=== PATIENT | female | born 1985 | race Caucasian/White ===

== ENCOUNTER 2020-12-18 10:31 | Emergency (ER) | payer OTHER ==
[2020-12-18] MEDS ORDERED: Ondansetron 4 MG/2 ML SDV IVPUSH ONE (10:33)
[2020-12-18] MEDS ORDERED: Pantoprazole 40 MG Vial IVPUSH ONE (10:33)
[2020-12-18] MEDS ORDERED: Lactated Ringers 1,000 ML IV ONE (10:33)
[2020-12-18] MEDS ORDERED: Famotidine 20 MG/2 ML SDV IVPUSH ONE (10:33)
--- NOTE | 2020-12-18 10:33 | EDM.PDOC ---
ED HPI GENERAL MEDICAL PROBLEM - General Chief Complaint: Genitourinary Problem Stated Complaint: right flank pain Time Seen by Provider: 12/18/20 10:33 Source of Information: Reports: Patient, Old Records ([facility] chart/EMR) History Limitations: Reports: No Limitations - History of Present Illness INITIAL COMMENTS - FREE TEXT/NARRATIVE: The patient drove herself to the emergency room via private automobile for evaluation of constant 10/10 right CVA ache type discomfort with additional intermittent sharp right lower back pain with no history of radiation of the above symptoms. Her symptoms started at about 7:30 AM on 12/15 with patient seeing her regular provider, Krista Watts PA-C, at [facility] in [place], on 12/18/2019 and started on Cipro at that time for suspected UTI. Her provider was also suspicious of a possible kidney stone, although no true colic type symptoms to this point. Patient did have an IUD placed on 12/09/2020 without complications by her history. She denies any gross hematuria, although apparent microhematuria from urine specimen collected by her regular provider yesterday as above. No recent history of other abdominal pain, heartburn, nausea, diarrhea, melena, gross hematochezia, or any food intolerance, including fatty foods, etc. with normal bowel movement earlier this morning. Note that her above symptoms do worsen with activity with no history of fall, injury, etc. with symptoms occurring while she was getting up from a sitting position at work. She does have a long history of chronic low back pain. The patient also denies any recent fever, cough, wheezing, dyspnea, etc.. The patient denies any chest pain/pressure, heart flutter, dizziness, orthostasis, orthopnea, diaphoresis, paresthesias, recent decreased exercise tolerance, or any other anginal-type symptoms. The patient did take 600 mg of ibuprofen at 10 PM yesterday evening with 1500 mg of Tylenol taken at 4 PM yesterday afternoon. Her discomfort is 3/10 at this time. Onset: Sudden Onset Date: 12/15/20 Onset Time: 07:30 Quality: Reports: Ache, Same as Previous Episode, Sharp Severity: Moderate Improves with: Reports: Rest Worsens with: Reports: Movement Context: Reports: Other (As above). Denies: Sick Contact, Trauma Associated Symptoms: Reports: Fever/Chills (Possible chills but temperature not measured). 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, Cold Therapy, Heat Therapy, NSAIDS Right Lower Back Pain Score (Numeric/FACES): 3 - Related Data Allergies Allergy/AdvReac Type Severity Reaction Status Date / Time No Known Allergies Allergy Verified 12/15/14 12:46 Home Meds: Home Meds Acetaminophen 2 tab PO Q4HR PRN 12/18/20 [History] Cetirizine [ZyrTEC] 1 tab PO DAILY 12/18/20 [History] Ciprofloxacin [Ciprofloxacin HCl] 1 tab PO BID 12/18/20 [History] Cyclobenzaprine [Flexeril] 10 mg PO TID PRN #30 tab 12/18/20 [Rx] Ibuprofen 2 - 3 cap PO Q6HR PRN 12/18/20 [History] Pseudoephedrine [Sudogest] 1 tab PO DAILY 12/18/20 [History] Past Medical History HEENT History: Reports: Allergic Rhinitis, Impaired Vision, Other (See Below). Denies: Cataract, Glaucoma, Hard of Hearing, Macular Degeneration, Otitis Media, Retinal Detachment Other HEENT History: Seasonal allergies. Patient does wear glasses. Cardiovascular History: Reports: Arrhythmia, Other (See Below). Denies: Afib, Aneurysm, Blood Clots/VTE/DVT, CAD, Heart Murmur, High Cholesterol, Hypertension, [place], PVD, Syncope Other Cardiovascular History: PSVT on 02/24/2013 with no recurrence since that time and with no current medical therapy. Respiratory History: Denies: Asthma, Bronchitis, Recurrent ( problems with recurrent), COPD ( collapsed lung), Intubation, Difficult, Intubation, Previous, PE, Pneumonia, Recurrent ( pneumonia bronchitis), Pneumothorax (Previous surgeries forgetting to put in your lung to help you breathe during the surgery), Sleep Apnea, TB ( sleep apnea will need oxygen at night) Gastrointestinal History: Reports: GERD. Denies: Celiac Disease, Cholelithiasis, Chronic Constipation, Chronic Diarrhea, Gastritis, GI Bleed, Hepatitis, Hiatal Hernia, Inflammatory Bowel Disease, Irritable Bowel Syndrome, Jaundice, Pancreatitis, PUD Genitourinary History: Reports: None. Denies: Acute Renal Failure, Chronic Renal Insuffiency, Renal Calculus, STD, Urinary Incontinence, UTI, Recurrent ENGRAVER BLOCK History: Reports: Dysfunctional Uterine Bleeding, . Denies: Endometriosis, Fibroids, Polycystic Ovaries, Spontaneous : 2 LMP (Approximate): Other (See Below) Other ENGRAVER BLOCK History: LMP about 1 week ago with IUD placed on 12/09/2020 as below. Full term without complications during pregnancies or deliveries Musculoskeletal History: Reports: Arthritis, Back Pain, Chronic, Osteoarthritis, Other (See Below). Denies: Amputation, Fracture, Gout, Neck Pain, Chronic, RA, SLE Other Musculoskeletal History: Mild scoliosis. Neurological History: Reports: Headaches, Chronic, Migraines, Other (See Below). Denies: Cerebral Aneurysms, Concussion, CVA, Head Trauma, MS, Neuropathy, Peripheral, Parkinson's, Seizure, TIA, Vertigo Other Neuro History: Migraine headaches with normal CT of the brain in January 2012 as below. Psychiatric History: Reports: None. Denies: Abuse, Victim of, ADD, ADHD, Addic tion, Anxiety, Depression, Psych Hospitalization(s), PTSD, Suicide Attempt, Suicidal Ideation Endocrine/Metabolic History: Reports: Obesity/BMI 30+. Denies: Diabetes, Gestational, Diabetes, Type I, Diabetes, Type II, Diabetes Mellitus, Type 3c, Hypothyroidism, IDDM Hematologic History: Reports: None. Denies: Anemia, Blood Transfusion(s), Iron Deficiency Immunologic History: Denies: AIDS, HIV, SLE Oncologic (Cancer) History: Reports: Cervix, Other (See Below). Denies: Basal Cell Carcinoma, Colon, Hodgkin's Lymphoma, Leukemia, Lymphoma, Malignant Melanoma, Metastatic, Non-Hodgkin's Lymphoma, Ovarian, Squamous Cell Carcinoma, Uterine Other Oncologic History: Stage I cervical cancer treated with a LEEP as below. Dermatologic History: Reports: None. Denies: Eczema, Psoriasis - Infectious Disease History Infectious Disease History: Reports: Chicken Pox. Denies: C-Difficile, HIV- Human Immunodeficiency Virus, Meningitis, Mononucleosis, MRSA, Mumps, Novel Coronavirus, Pertussis (Whooping Cough), Rheumatic Fever, Rubella, Scarlet Fever, Shingles, TB, VRE - Past Surgical History Head Surgeries/Procedures: Reports: None HEENT Surgical History: Reports: Oral Surgery, Other (See Below). Denies: Adenoidectomy, Cataract Surgery, Eye Surgery, Laser Surgery, LASIK, Myringotomy w Tube(s), Naso-Sinus Surgery, Tonsillectomy Other HEENT Surgeries/Procedures: Dental extractions. Cardiovascular Surgical History: Reports: None. Denies: Varicose Respiratory Surgical History: Reports: None. Denies: Thoracentesis GI Surgical History: Reports: None. Denies: Appendectomy, Cholecystectomy, Colonoscopy, EGD, Hernia, Abdominal, Hernia, Inguinal, Hernia Repair/Other Female Surgical History: Reports: LEEP, Other (See Below). Denies: Breast Biopsy, Breast Reduction, Section, Cervical Conization, Cervical Cryotherapy, D&C, Dilitation & Evacuation, Hysterectomy, Salpingo-Oophorectomy, Tubal Ligation Other Female Surgeries/Procedures: LEEP procedure in 2013. Endocrine Surgical History: Reports: None. Denies: Thyroid Biopsy Neurological Surgical History: Reports: None. Denies: C-Spine, Discectomy, Laminectomy, Lumbar Spine, Sacral Spine, Spinal Fusion, Thoracic Spine, Vertebroplasty Musculoskeletal Surgical History: Reports: None. Denies: Arthroscopic Procedure, Carpal Tunnel, Joint Replacement, Knee Replacement, ORIF, Shoulder Surgery Oncologic Surgical History: Reports: None Dermatological Surgical History: Reports: None - Past Imaging History Past Imaging History: Reports: CAT Scan (CT scan of the brain on 01/21/2012.), Ultrasound (Pelvic ultrasound on 12/21/2012. Previous OB ultrasounds.) Social & Family History - Tobacco Use Tobacco Use Status *Q: Never Tobacco User Tobacco Use Within Last Twelve Months: No Used Tobacco, but Quit: No Smoking Cessation Information Provided To Patient: No Second Hand Smoke Exposure: No Second Hand Smoke Education Provided: No - Caffeine Use Caffeine Use: Reports: Soda (46 sodas per day). Denies: Coffee, Energy Drinks, Tea - Alcohol Use Alcohol Use History: No Days Per Week of Alcohol Use: 0 Number of Drinks Per Day: 0 Number of Drinks Per Day Comment: No previous DWIs, problems with alcohol abuse, etc. Total Drinks Per Week: 0 Alcohol Use in Last Twelve Months: No - Recreational Drug Use Recreational Drug Use: Yes Drug Use in Last 12 Months: Yes Recreational Drug Type: Reports: Marijuana/Hashish (Started at age 18 currently with weekly use). 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 ED EXAM, GENERAL - Physical Exam Exam: See Below Exam Limited By: No Limitations General Appearance: Alert, WD/WN, No Apparent Distress, Anxious (Mild to moderate) Head: Atraumatic, Normocephalic. No: Facial Swelling, Facial Tenderness, Sinus Tenderness Neck: Normal Inspection, Supple, Non-Tender, Full Range of Motion. No: Carotid Bruit, Lymphadenopathy (L), Lymphadenopathy (R), Thyromegaly Respiratory/Chest: No Respiratory Distress, Lungs Clear, Normal Breath Sounds, No Accessory Muscle Use, Chest Non-Tender. No: Pleural Rub (Yesterday for an open apparently apparently they allow it rapid goes to the emergency room with with or without now she is worried about stone protocol so there would not be will order with in order tohave been ordered renal stone), Retractions Cardiovascular: Normal Peripheral Pulses, Regular Rate, Rhythm, No Edema, No Gallop, No JVD, No Murmur, No Rub. No: Gallop/S3, Gallop/S4, Friction Rub Peripheral Pulses: 2+: Radial (L), Radial (R), Dorsalis Pedis (L), Dorsalis Pedis (R) GI/Abdominal: Normal Bowel Sounds, Soft, Non-Tender, No Organomegaly, No Distention, No Abnormal Bruit, No Mass, Pelvis Stable, Other (Obese). No: Guarding (Female) Exam: Deferred Rectal (Female) Exam: Deferred Back Exam: Decreased Range of Motion (Right low back region), Paraspinal Tenderness (Minimal right mid lumbar region). No: CVA Tenderness (L), CVA Tenderness (R), Muscle Spasm, Vertebral Tenderness Extremities: Normal Inspection, Normal Range of Motion, Non-Tender, No Pedal Edema, Normal Capillary Refill. No: Nadine's Sign Neurological: Alert, Oriented, CN II-XII Intact, Normal Cognition, Normal Gait, Normal Reflexes (Negative Babinski's), No Motor/Sensory Deficits Psychiatric: Anxious (Mild to moderate), Depressed Mood (Borderline) Skin Exam: Warm, Dry, Intact, Normal Color, No Rash, Tattoo(s). No: Diaphoretic, Wound/Incision Lymphatic: No Adenopathy Course - Vital Signs Last Recorded V/S: Last Vital Signs Temp 36.4 C 12/18/20 12:30 Pulse 64 12/18/20 12:30 Resp 16 12/18/20 12:30 BP 139/73 12/18/20 12:30 Pulse Ox 100 12/18/20 12:30 Vital Signs - 24 hr 12/18/20 12/18/20 11:00 12:30 Temperature [ 36.3 C 36.4 C Temporal] Pulse, 65 64 Peripheral [ Pulse Oximetry] Respiratory 15 16 Rate Blood Pressure 120/68 139/73 [Right Upper Arm] O2 Sat by Pulse 100 100 Oximetry - Orders/Labs/Meds Orders: Active Orders 24 hr Category Date Time Status Peripheral IV Care [RC] . DIRECTED Care 12/18/20 10:34 Active Nothing Per Oral Diet [DIET] Diet 12/18/20 Breakfast Active Abdomen Pelvis w Cont [CT] Stat Exams 12/18/20 10:33 Stop Req Abdomen Pelvis wo Cont [CT] Stat Exams 12/18/20 10:37 Ordered CULTURE URINE [RM] Stat Lab 12/18/20 10:35 Received Sodium Chloride 0.9% [Saline Flush] Med 12/18/20 10:33 Active 10 ml FLUSH ASDIRECTED PRN Obtain Past Medical Record [OM.PC] Urgent Oth 12/18/20 10:33 Active Peripheral IV Insertion Adult [OM.PC] Stat Oth 12/18/20 10:33 Ordered Resuscitation Status Stat Resus Stat 12/18/20 10:33 Ordered Medication Orders Sodium Chloride (Sodium Chloride 0.9% 10 Ml Syringe) 10 ml FLUSH ASDIRECTED PRN PRN Reason: Keep Vein Open Last Admin: 12/18/20 10:46 Dose: 10 ml Documented by: Admin: 12/18/20 10:45 Dose: 10 ml Documented by: ELIAZAR Labs: Laboratory Tests 12/18/20 12/18/20 12/18/20 Range/Units 10:35 10:40 10:40 WBC 8.7 (4.0-10.2) K/uL RBC 4.43 (3.77-5.09) M/uL Hgb 13.5 (11.7-15.5) g/dL Hct 40.5 (34.0-46.0) % MCV 91.4 (84.0-98.0) fL MCH 30.5 (28.2-33.3) pg MCHC 33.3 (31.7-36.0) g/dL RDW 12.5 (11.2-14.1) % Plt Count 287 (150-350) K/uL Neut % (Auto) 66.0 (45.0-80.0) % Lymph % (Auto) 24.6 (10.0-50.0) % [place] % (Auto) 5.9 (2.0-14.0) % Eos % (Auto) 3.2 (0.0-5.0) % Baso % (Auto) 0.3 (0.0-2.0) % Neut # (Auto) 5.74 (1.40-7.00) K/uL Lymph # (Auto) 2.14 (0.50-3.50) K/uL [place] # (Auto) 0.51 (0.00-1.00) K/uL Eos # (Auto) 0.28 (0.00-0.50) K/uL Baso # (Auto) 0.03 (0.00-0.20) K/uL PT (9.5-12.0) SEC INR APTT (24.5-32.8) SEC Sodium (136-145) mmol/L Potassium (3.5-5.1) mmol/L Chloride (98-107) mmol/L Carbon Dioxide (21.0-32.0) mmol/L BUN (7-18) mg/dL Creatinine (0.51-1.17) mg/dL Est Cr Clr Drug Dosing Estimated GFR (MDRD) mL/min Glucose (70-99) mg/dL Lactic Acid (0.4-2.0) mmol/L Uric Acid (2.6-7.2) mg/dL Calcium (8.5-10.1) mg/dL Magnesium (1.8-2.4) mg/dL Total Bilirubin (0.2-1.0) mg/dL AST (15-37) U/L ALT (12-78) U/L Alkaline Phosphatase (46-116) IU/L Total Protein (6.4-8.2) g/dL Albumin (3.4-5.0) g/dL Amylase 41 (25-115) U/L Lipase (73-393) U/L HCG, Qual (NEGATIVE) Specimen Type Urinvoid Urine Color Yellow Urine Appearance Clear Urine pH 5.5 (5.0-9.0) Ur Specific [place] >= 1.030 (1.005-1.030) Urine Protein Negative (NEGATIVE) mg/dL Urine Glucose (UA) Negative (NEGATIVE) mg/dL Urine Ketones Negative (NEGATIVE) mg/dL Urine Occult Blood Moderate H (NEGATIVE) Urine Nitrite Negative (NEGATIVE) Urine Bilirubin Negative (NEGATIVE) Urine Urobilinogen 0.2 (0.2-1.0) E.U./dL Ur Leukocyte Esterase Negative (NEGATIVE) Urine RBC 5-10 H /HPF Urine WBC 5-10 H /HPF Ur Epithelial Cells Moderate H /LPF Urine Bacteria Few (NONE TO FEW) /HPF 12/18/20 12/18/20 12/18/20 Range/Units 10:40 10:40 10:40 WBC (4.0-10.2) K/uL RBC (3.77-5.09) M/uL Hgb (11.7-15.5) g/dL Hct (34.0-46.0) % MCV (84.0-98.0) fL MCH (28.2-33.3) pg MCHC (31.7-36.0) g/dL RDW (11.2-14.1) % Plt Count (150-350) K/uL Neut % (Auto) (45.0-80.0) % Lymph % (Auto) (10.0-50.0) % [place] % (Auto) (2.0-14.0) % Eos % (Auto) (0.0-5.0) % Baso % (Auto) (0.0-2.0) % Neut # (Auto) (1.40-7.00) K/uL Lymph # (Auto) (0.50-3.50) K/uL [place] # (Auto) (0.00-1.00) K/uL Eos # (Auto) (0.00-0.50) K/uL Baso # (Auto) (0.00-0.20) K/uL PT 9.6 (9.5-12.0) SEC INR 1.0 APTT 24.4 L (24.5-32.8) SEC Sodium 138 (136-145) mmol/L Potassium 3.9 (3.5-5.1) mmol/L Chloride 103 (98-107) mmol/L Carbon Dioxide 25.7 (21.0-32.0) mmol/L BUN 10 (7-18) mg/dL Creatinine 0.77 (0.51-1.17) mg/dL Est Cr Clr Drug Dosing TNP Estimated GFR (MDRD) > 60 mL/min Glucose 96 (70-99) mg/dL Lactic Acid 1.1 (0.4-2.0) mmol/L Uric Acid 4.0 (2.6-7.2) mg/dL Calcium 8.6 (8.5-10.1) mg/dL Magnesium 2.0 (1.8-2.4) mg/dL Total Bilirubin 0.6 (0.2-1.0) mg/dL AST 11 L (15-37) U/L ALT 23 (12-78) U/L Alkaline Phosphatase 63 (46-116) IU/L Total Protein 7.4 (6.4-8.2) g/dL Albumin 4.0 (3.4-5.0) g/dL Amylase (25-115) U/L Lipase 100 (73-393) U/L HCG, Qual (NEGATIVE) Specimen Type Urine Color Urine Appearance Urine pH (5.0-9.0) Ur Specific [place] (1.005-1.030) Urine Protein (NEGATIVE) mg/dL Urine Glucose (UA) (NEGATIVE) mg/dL Urine Ketones (NEGATIVE) mg/dL Urine Occult Blood (NEGATIVE) Urine Nitrite (NEGATIVE) Urine Bilirubin (NEGATIVE) Urine Urobilinogen (0.2-1.0) E.U./dL Ur Leukocyte Esterase (NEGATIVE) Urine RBC /HPF Urine WBC /HPF Ur Epithelial Cells /LPF Urine Bacteria (NONE TO FEW) /HPF 12/18/20 Range/Units 10:40 WBC (4.0-10.2) K/uL RBC (3.77-5.09) M/uL Hgb (11.7-15.5) g/dL Hct (34.0-46.0) % MCV (84.0-98.0) fL MCH (28.2-33.3) pg MCHC (31.7-36.0) g/dL RDW (11.2-14.1) % Plt Count (150-350) K/uL Neut % (Auto) (45.0-80.0) % Lymph % (Auto) (10.0-50.0) % [place] % (Auto) (2.0-14.0) % Eos % (Auto) (0.0-5.0) % Baso % (Auto) (0.0-2.0) % Neut # (Auto) (1.40-7.00) K/uL Lymph # (Auto) (0.50-3.50) K/uL [place] # (Auto) (0.00-1.00) K/uL Eos # (Auto) (0.00-0.50) K/uL Baso # (Auto) (0.00-0.20) K/uL PT (9.5-12.0) SEC INR APTT (24.5-32.8) SEC Sodium (136-145) mmol/L Potassium (3.5-5.1) mmol/L Chloride (98-107) mmol/L Carbon Dioxide (21.0-32.0) mmol/L BUN (7-18) mg/dL Creatinine (0.51-1.17) mg/dL Est Cr Clr Drug Dosing Estimated GFR (MDRD) mL/min Glucose (70-99) mg/dL Lactic Acid (0.4-2.0) mmol/L Uric Acid (2.6-7.2) mg/dL Calcium (8.5-10.1) mg/dL Magnesium (1.8-2.4) mg/dL Total Bilirubin (0.2-1.0) mg/dL AST (15-37) U/L ALT (12-78) U/L Alkaline Phosphatase (46-116) IU/L Total Protein (6.4-8.2) g/dL Albumin (3.4-5.0) g/dL Amylase (25-115) U/L Lipase (73-393) U/L HCG, Qual Negative (NEGATIVE) Specimen Type Urine Color Urine Appearance Urine pH (5.0-9.0) Ur Specific [place] (1.005-1.030) Urine Protein (NEGATIVE) mg/dL Urine Glucose (UA) (NEGATIVE) mg/dL Urine Ketones (NEGATIVE) mg/dL Urine Occult Blood (NEGATIVE) Urine Nitrite (NEGATIVE) Urine Bilirubin (NEGATIVE) Urine Urobilinogen (0.2-1.0) E.U./dL Ur Leukocyte Esterase (NEGATIVE) Urine RBC /HPF Urine WBC /HPF Ur Epithelial Cells /LPF Urine Bacteria (NONE TO FEW) /HPF Meds: Medications Generic Name Dose Route Start Last Admin Trade Name Freq PRN Reason Stop Dose Admin Sodium Chloride 10 ml 12/18/20 10:33 12/18/20 10:46 Sodium Chloride 0.9% 10 Ml Syringe FLUSH 10 ml ASDIRECTED PRN Administration Keep Vein Open Discontinued Medications Generic Name Dose Route Start Last Admin Trade Name Freq PRN Reason Stop Dose Admin Famotidine 40 mg 12/18/20 10:33 12/18/20 10:44 Famotidine 20 Mg/2 Ml Sdv IVPUSH 12/18/20 10:34 40 mg ONETIME ONE Administration Lactated Ringer's 1,000 mls @ 999 mls/hr 12/18/20 10:33 12/18/20 10:44 Ringers, Lactated IV 12/18/20 11:33 999 mls/hr .BOLUS ONE Administration Ketorolac Tromethamine 30 mg 12/18/20 10:39 12/18/20 10:44 Ketorolac 30 Mg/Ml Sdv IVPUSH 12/18/20 10:40 30 mg ONETIME ONE Administration Pantoprazole Sodium 40 mg 12/18/20 10:33 12/18/20 10:44 Pantoprazole 40 Mg Vial IVPUSH 12/18/20 10:34 40 mg ONETIME ONE Administration - Radiology Interpretation Free Text/Narrative:: CT of the abdomen and pelvis using stone protocol was negative for urolithiasis, nephrolithiasis, hydronephrosis, etc. Incidental finding of possible left ovarian follicle and/or enlargement by verbal report, however not noted in the written report. IUD and hepatomegaly without fatty liver were additional incidental findings. No significant abnormalities noted in the lumbar spine, including disc prolapse, etc. CT Results Date: 12/18/20 CT Results Time: 12:03 Departure - Departure Time of Disposition: 12:37 Disposition: Home, Self-Care 01 Condition: Good Clinical Impression: UTI, Urinary tract infectious disease, Hepatomegaly, Obesity (BMI 30-39.9) Osteoarthritis Qualifiers: Osteoarthritis location: multiple joints Osteoarthritis type: primary Qualified Code(s): M89.49 - Other hypertrophic osteoarthropathy, multiple sites Abdominal pain Qualifiers: Abdominal location: right upper quadrant Qualified Code(s): R10.11 - Right upper quadrant pain Low back pain Qualifiers: Chronicity: acute Back pain laterality: right Sciatica presence: without sciatica Qualified Code(s): M54.5 - Low back pain Migraine headache Qualifiers: Migraine type: without aura Status migrainosus presence: without status migrainosus Intractability: not intractable Qualified Code(s): G43.009 - Migraine without aura, not intractable, without status migrainosus - Discharge Information *PRESCRIPTION DRUG MONITORING PROGRAM REVIEWED*: Not Applicable *COPY OF PRESCRIPTION DRUG MONITORING REPORT IN PATIENT AKOSUA: Not Applicable Prescriptions: Cyclobenzaprine [Flexeril] 10 mg PO TID PRN #30 tab PRN Reason: Spasms Instructions: Urinary Tract Infection, Adult, [id number], Chronic Back Pain, [id number] Referrals: Krista Pace PA-C [Primary Care Provider] - Forms: ED Department Discharge, ED Return to Work/School Form Additional Instructions: 1. Followup with your regular provider in 7-10 days as directed. Recommend repeating urine test with culture and sensitivity at that time. Bring these discharge instructions with you to that visit. 2. [place] diet including encouragement of oral fluids such as sports drinks, etc. for 24-48 hours as directed. Advance to heart healthy diet as tolerated thereafter. 3. Tylenol 650 mg by mouth every 4 hours and/or OTC ibuprofen 2-3 tabs by mouth every 6 hours with food as directed./needed. You may stagger these medications for 48-72 hours only, which essentially means that you are receiving a pain medication about every 2 hours. Next dose of ibuprofen in 6 hours as needed secondary to medications given in the emergency room. 4. Work excuse- See Form. Advance activity slowly as discussed 5. Sedation precautions with Flexeril as discussed 6. Immediately after this visit verify that your cellular telephone's voicemail has been activated and is empty. Also verify that your home telephone's answering machine is operating properly and has space to receive messages. Note that it is sometimes necessary for us to be able to contact you at a later date to discuss your medical care. 7. Please remember that we are ALWAYS here for you and want to answer any questions you may have. Feel free to call the hospital any time and we call you back RUBÉN. 8. [place] or equivalent, heating pad, and/or ice packs as directed. Sepsis Event Note (ED) - Focused Exam Vital Signs: Vital Signs Temp Pulse Resp BP Pulse Ox 12/18/20 12:30 36.4 C 64 16 139/73 100 12/18/20 11:00 36.3 C 65 15 120/68 100 - Problem List & Annotations (1) Low back pain SNOMED Code(s): 578536791 Code(s): M54.5 - LOW BACK PAIN Status: Acute Priority: High Current Visit: Yes Onset Date: ~12/15/20 Annotation/Comment:: Likely concomitant exacerbation of her chronic low back pain with no history of injury, etc. IV Toradol given in the emergency room with overall good results. Initiate outpatient Flexeril therapy with sedation precautions given. Work excuse was provided. Otherwise symptomatic relief, including topical therapy, etc. as per discharge instructions with this also discussed with the patient prior to discharge. Qualifiers: Chronicity: acute Back pain laterality: right Sciatica presence: without sciatica Qualified Code(s): M54.5 - Low back pain (2) Abdominal pain SNOMED Code(s): 92767566 Code(s): R10.9 - UNSPECIFIED ABDOMINAL PAIN Status: Acute Priority: High Current Visit: Yes Onset Date: ~12/15/20 Annotation/Comment:: Nonspecific pelvic discomfort with recently diagnosed UTI/cystitis with possible suspicion of urolithiasis by her regular provider as above. Note negative CT scan of the abdomen pelvis using stone protocol as above. Qualifiers: Abdominal location: right upper quadrant Qualified Code(s): R10.11 - Right upper quadrant pain (3) UTI, Urinary tract infectious disease SNOMED Code(s): 91156886 Code(s): N39.0 - URINARY TRACT INFECTION, SITE NOT SPECIFIED Status: Acute Priority: High Current Visit: Yes Onset Date: ~12/15/20 Annotation/Comment:: Possible UTI diagnosed by her regular provider on 12/17. She did apparently set up a urine culture, however results were not available. No evidence of significant infection, nephritis, etc. at this time with our urine specimen today also sent for culture and sensitivity. Patient will complete her previously prescribed 5-day course of Cipro with close follow-up by her regular provider as per discharge instructions. Note recent IUD placement, which could explain patient's microhematuria. (4) Osteoarthritis SNOMED Code(s): 749334762 Code(s): M19.90 - UNSPECIFIED OSTEOARTHRITIS, UNSPECIFIED SITE Status: Chronic Priority: Medium Current Visit: Yes Annotation/Comment:: Otherwise stable by history Qualifiers: Osteoarthritis location: multiple joints Osteoarthritis type: primary Qualified Code(s): M89.49 - Other hypertrophic osteoarthropathy, multiple sites (5) Hepatomegaly SNOMED Code(s): 01415998 Code(s): R16.0 - HEPATOMEGALY, NOT ELSEWHERE CLASSIFIED Status: Acute Priority: Medium Current Visit: Yes Onset Date: 12/18/20 Annotation/Comment:: Incidental finding by CT scan. No evidence of fatty liver, however note to moderate obesity. Continue to observe closely by her regular provider, including recommended lipid profile, etc. (6) Migraine headache SNOMED Code(s): 58695831 Code(s): G43.909 - MIGRAINE, UNSP, NOT INTRACTABLE, WITHOUT STATUS MIGRAINOSUS Status: Chronic Priority: Medium Current Visit: Yes Annotat ion/Comment:: Stable by history. 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 Continue to observe closely by her regular provider. Qualifiers: Migraine type: without aura Status migrainosus presence: without status migrainosus Intractability: not intractable Qualified Code(s): G43.009 - Migraine without aura, not intractable, without status migrainosus (7) Obesity (BMI 30-39.9) SNOMED Code(s): 610463797, 316922527 Code(s): E66.9 - OBESITY, UNSPECIFIED Status: Chronic Priority: High Current Visit: Yes Annotation/Comment:: Weight loss in moderation advisable. Note her obesity may be contributing to her chronic low back pain. - Problem List Review Problem List Initiated/Reviewed/Updated: Yes - My Orders Last 24 Hours: My Active Orders 12/18/20 Breakfast Nothing Per Oral Diet [DIET] 12/18/20 10:33 Abdomen Pelvis w Cont [CT] Stat Sodium Chloride 0.9% [Saline Flush] 10 ml FLUSH ASDIRECTED PRN Obtain Past Medical Record [OM.PC] Urgent Peripheral IV Insertion Adult [OM.PC] Stat Resuscitation Status Stat 12/18/20 10:34 Peripheral IV Care [RC] . DIRECTED 12/18/20 10:35 CULTURE URINE [RM] Stat 12/18/20 10:37 Abdomen Pelvis wo Cont [CT] Stat - Assessment/Plan Last 24 Hours: My Active Orders 12/18/20 Breakfast Nothing Per Oral Diet [DIET] 12/18/20 10:33 Abdomen Pelvis w Cont [CT] Stat Sodium Chloride 0.9% [Saline Flush] 10 ml FLUSH ASDIRECTED PRN Obtain Past Medical Record [OM.PC] Urgent Peripheral IV Insertion Adult [OM.PC] Stat Resuscitation Status Stat 12/18/20 10:34 Peripheral IV Care [RC] . DIRECTED 12/18/20 10:35 CULTURE URINE [RM] Stat 12/18/20 10:37 Abdomen Pelvis wo Cont [CT] Stat Assessment:: As above. Plan: As above. Extensive precautions were given to the patient, who is in agreement with the treatment plan. See Patient Instructions for further treatment and plan.
[2020-12-18] MEDS ORDERED: Ketorolac 30 MG/ML SDV IVPUSH ONE (10:39)
[2020-12-18] MEDS: Sodium Chloride 0.9% 10 ML Syringe FLUSH PRN ×2 (10:45→10:46)
[2020-12-18 10:59] LABS: PTT,PARTIAL THROMBOPLSTIN TIME 24.4 SEC (24.5-32.8)
[2020-12-18 11:01] LABS: CHLORIDE,CL 103 mmol/L (98-107); SODIUM,NA 138 mmol/L (136-145)
[2020-12-18 12:51] VITALS: BP 139/73; PULSE 64
== END 2020-12-18 12:37 | disposition home or self-care (01) ==
LOC: LL.ED 10:31
DX: M54.5 Low back pain (principal); G43.009 Migraine without aura, not intractable, without status migrainosus; M89.49 Other hypertrophic osteoarthropathy, multiple sites; N39.0 Urinary tract infection, site not specified; R16.0 Hepatomegaly, not elsewhere classified; E66.9 Obesity, unspecified; M41.9 Scoliosis, unspecified
CPT/HCPCS: 36415; 74176; 80053; 81001; 82150; 83605; 83690; 83735; 84550; 84703; 85025; 85610; 85730; 87086; 96374; 96375; 99284; C9113; J1885; J3490; J7120